=== PATIENT | male | born 1990 | race African-American/Black ===

== ENCOUNTER 2018-02-08 19:01 | Emergency (ER) | payer MEDICAID, OTHER ==
[~2018-02-08] VITALS: Ht 182.9 cm; Wt 80.0 kg
[2018-02-08] MEDS ORDERED: DICYCLOMINE 10 MG/5 ML ORAL SYR PO STA (19:47)
[2018-02-08] MEDS ORDERED: VISCOUS LIDOCAINE 2% 15 ML UDC PO STA (19:47)
[2018-02-08] MEDS ORDERED: FAMOTIDINE 20MG/2ML VIAL IV STA (19:47)
[2018-02-08] MEDS ORDERED: SODIUM CHLORIDE 0.9% 1,000 ML IV ONE (19:47)
[2018-02-08] MEDS ORDERED: MAGNESIUM/ALUMINUM HYDROXIDE/SIMETHICONE 30ML UDC PO STA (19:47)
[2018-02-08] MEDS ORDERED: ONDANSETRON HCL 4MG/2ML VIAL IV ONE (20:45)
[2018-02-08 21:00] LABS: CHLORIDE 103 mEq/L (98-107)
[2018-02-08 21:02] LABS: BASOPHILS % 0.1 % (0.0-2.0); HEMATOCRIT. 48.2 % (42.0-52.0); HEMOGLOBIN. 16.5 g/dL (14.0-18.0); MEAN CORPUSCULAR HEMOGLOBIN 27.6 pg (28.0-32.0); MEAN CORPUSCULAR VOLUME 80.5 fL (80.0-94.0); MEAN PLATELET VOLUME 9.7 fl (7.4-10.4); MONOCYTES % 6.6 % (2.0-8.0); NEUTROPHILS % 81.3 % (40.0-76.0); PLATELET 305 x1000/uL (130-400); RED BLOOD CELL COUNT 5.99 mill/uL (4.7-6.1); RED CELL DISTRIBUTION WIDTH 16.1 % (11.6-14.6)
[2018-02-08 21:04] LABS: ETHANOL BLOOD < 10 mg/dL
[2018-02-08 21:45] VITALS: BP 130/82
== END 2018-02-08 21:55 | disposition home or self-care (01) ==
LOC: ER 19:10
DX: R10.13 Epigastric pain (principal); R11.2 Nausea with vomiting, unspecified; I10 Essential (primary) hypertension
CPT/HCPCS: 36415; 71045; 80053; 83690; 85025; 96361; 96374; 96375; 99285; G0482; J2405; J3490; J7030

== ENCOUNTER 2018-04-10 11:38 | Emergency (ER) | payer OTHER ==
[~2018-04-10] VITALS: Ht 177.8 cm; Wt 103.0 kg
[2018-04-10] MEDS ORDERED: MAGNESIUM/ALUMINUM HYDROXIDE/SIMETHICONE 30ML UDC PO STA (13:24)
[2018-04-10] MEDS ORDERED: SODIUM CHLORIDE 0.9% 1,000 ML IV ONE (13:24)
[2018-04-10] MEDS ORDERED: FAMOTIDINE 20MG/2ML VIAL IV STA (13:24)
[2018-04-10] MEDS ORDERED: ONDANSETRON HCL 4MG/2ML INJ IV STA (13:24)
[2018-04-10] MEDS ORDERED: VISCOUS LIDOCAINE 2% 15 ML UDC PO STA (13:24)
[2018-04-10 15:17] LABS: BASOPHILS % 0.3 % (0.0-2.0); HEMATOCRIT. 51.4 % (42.0-52.0); HEMOGLOBIN. 18.1 g/dL (14.0-18.0); LYMPHOCYTES % 12.7 % (20.0-50.0); MEAN CORPUSCULAR HEMOGLOBIN 28.4 pg (28.0-32.0); MEAN CORPUSCULAR VOLUME 80.9 fL (80.0-94.0); MEAN PLATELET VOLUME 9.9 fl (7.4-10.4); MONOCYTES % 6.2 % (2.0-8.0); NEUTROPHILS % 80.8 % (40.0-76.0); PLATELET 278 x1000/uL (130-400); RED BLOOD CELL COUNT 6.35 mill/uL (4.7-6.1); RED CELL DISTRIBUTION WIDTH 15.5 % (11.6-14.6)
[2018-04-10 15:23] LABS: CHLORIDE 100 mEq/L (98-107)
[2018-04-10 15:25] LABS: INR 1.1
[2018-04-10 16:58] LABS: CLARITY URINE TURBID (CLEAR); COLOR URINE DARK YELLOW (YELLOW); KETONES URINE TRACE (NEGATIVE); LEUKOCYTE ESTERASE URINE TRACE (NEGATIVE); NITRITE URINE NEGATIVE (NEGATIVE); OCCULT BLOOD URINE NEGATIVE (NEGATIVE); PH URINE 5.5 (4.5-8.0); PROTEIN URINE 2+ (NEGATIVE); SPECIFIC GRAVITY URINE 1.044 (1.005-1.030)
[2018-04-10 17:46] LABS: *AMPHETAMINES SCREEN URINE NEGATIVE (NEGATIVE); *BARBITURATES SCREEN URINE NEGATIVE (NEGATIVE); *BENZODIAZEPINES SCREEN URINE NEGATIVE (NEGATIVE); *COCAINE SCREEN URINE PRESUMTIVE POSITIVE (NEGATIVE); METHADONE URINE SCREEN NEGATIVE (NEGATIVE); OPIATES URINE SCREEN NEGATIVE (NEGATIVE)
[2018-04-10 17:47] LABS: CANNABINOID URINE SCREEN PRESUMTIVE POSITIVE (NEGATIVE); PHENCYCLIDINE URINE SCREEN NEGATIVE (NEGATIVE)
[2018-04-10 20:27] VITALS: BP 165/88
== END 2018-04-10 20:30 | disposition home or self-care (01) ==
LOC: ER 12:55
DX: K29.00 Acute gastritis without bleeding (principal); N39.0 Urinary tract infection, site not specified; F12.10 Cannabis abuse, uncomplicated; F20.9 Schizophrenia, unspecified
CPT/HCPCS: 36415; 80053; 80305; 81003; 83690; 85025; 85610; 96374; 96375; 99284; J2405; J3490; J7030

== ENCOUNTER 2018-04-11 18:17 | Emergency (ER) | payer MEDICAID, OTHER ==
[~2018-04-11] VITALS: Ht 177.8 cm; Wt 91.0 kg
[2018-04-11] MEDS ORDERED: DICYCLOMINE 10 MG/5 ML ORAL SYR PO STA (21:28)
[2018-04-11] MEDS ORDERED: FAMOTIDINE 20MG/2ML VIAL IV STA (21:28)
[2018-04-11] MEDS ORDERED: ONDANSETRON HCL 4MG/2ML INJ IV STA (21:28)
[2018-04-11] MEDS ORDERED: VISCOUS LIDOCAINE 2% 15 ML UDC PO STA (21:28)
[2018-04-11] MEDS ORDERED: MAGNESIUM/ALUMINUM HYDROXIDE/SIMETHICONE 30ML UDC PO STA (21:28)
[2018-04-11 23:11] VITALS: BP 157/86
[2018-04-11] MEDS ORDERED: METOCLOPRAMIDE HCL 10MG TABLET PO ONE (23:30)
== END 2018-04-11 23:22 | disposition home or self-care (01) ==
LOC: ER 18:17
DX: K21.9 Gastro-esophageal reflux disease without esophagitis (principal)
CPT/HCPCS: 96374; 96375; 99284; J2405; J3490; Z7610; J8597

== ENCOUNTER 2018-10-07 16:57 | Emergency (ER) | payer MEDICAID ==
[~2018-10-07] VITALS: Ht 177.8 cm; Wt 77.0 kg
[2018-10-07 20:27] VITALS: BP 131/89
[2018-10-07] MEDS ORDERED: IBUPROFEN 600MG TABLET PO ONE (20:30)
== END 2018-10-07 20:49 | disposition home or self-care (01) ==
LOC: ER 16:57
DX: S90.821A Blister (nonthermal), right foot, initial encounter (principal); F20.9 Schizophrenia, unspecified; F12.10 Cannabis abuse, uncomplicated; X58.XXXA Exposure to other specified factors, initial encounter; Y93.89 Activity, other specified; Y92.89 Other specified places as the place of occurrence of the external cause; Y99.8 Other external cause status
CPT/HCPCS: 99283

== ENCOUNTER 2018-11-06 04:44 | Emergency (ER) | payer MEDICAID ==
[~2018-11-06] VITALS: Ht 172.7 cm; Wt 73.0 kg
[2018-11-06] MEDS ORDERED: MAGNESIUM/ALUMINUM HYDROXIDE/SIMETHICONE 30ML UDC PO STA ×2 (06:24→08:37)
[2018-11-06] MEDS ORDERED: ONDANSETRON HCL 4MG/2ML INJ IV STA (06:24)
[2018-11-06] MEDS ORDERED: KETOROLAC 30MG/ML VIAL IV STA (06:24)
[2018-11-06] MEDS ORDERED: SODIUM CHLORIDE 0.9% 1,000 ML IV ONE (06:24)
[2018-11-06] MEDS ORDERED: DICYCLOMINE 10 MG/5 ML ORAL SYR PO STA ×2 (06:24→08:37)
[2018-11-06] MEDS ORDERED: VISCOUS LIDOCAINE 2% 15 ML UDC PO STA ×2 (06:24→08:37)
[2018-11-06 07:04] LABS: BASOPHILS % 0.2 % (0.0-2.0); EOSINOPHILS % 0.1 % (0.0-5.0); HEMATOCRIT. 46.2 % (42.0-52.0); HEMOGLOBIN. 15.6 g/dL (14.0-18.0); LYMPHOCYTES % 11.3 % (20.0-50.0); MEAN CORPUSCULAR HEMOGLOBIN 27.9 pg (28.0-32.0); MEAN CORPUSCULAR VOLUME 82.5 fL (80.0-94.0); MONOCYTES % 2.9 % (2.0-8.0); NEUTROPHILS % 85.5 % (40.0-76.0); PLATELET 251 x1000/uL (130-400); RED CELL DISTRIBUTION WIDTH 15.8 % (11.6-14.6)
[2018-11-06 07:06] LABS: CHLORIDE 103 mEq/L (98-107)
[2018-11-06 07:07] LABS: PROTHROMBIN TIME 10.7 sec (9.6-11.0)
[2018-11-06 07:11] LABS: ETHANOL BLOOD < 10 mg/dL
[2018-11-06 08:13] LABS: CLARITY URINE CLOUDY (CLEAR); COLOR URINE YELLOW (YELLOW); KETONES URINE 2+ (NEGATIVE); LEUKOCYTE ESTERASE URINE NEGATIVE (NEGATIVE); NITRITE URINE NEGATIVE (NEGATIVE); OCCULT BLOOD URINE NEGATIVE (NEGATIVE); PH URINE >=9.0 (4.5-8.0); PROTEIN URINE NEGATIVE (NEGATIVE); SPECIFIC GRAVITY URINE 1.018 (1.005-1.030); UROBILINOGEN URINE 0.2 E.U./dL (0.2-1.0)
[2018-11-06] MEDS ORDERED: ONDANSETRON 4MG ODT PO STA (08:37)
[2018-11-06 09:04] VITALS: BP 152/81
== END 2018-11-06 09:02 | disposition home or self-care (01) ==
LOC: ER 04:44
DX: K29.20 Alcoholic gastritis without bleeding (principal); F10.10 Alcohol abuse, uncomplicated; Y90.0 Blood alcohol level of less than 20 mg/100 ml; F31.9 Bipolar disorder, unspecified; F20.9 Schizophrenia, unspecified; F12.10 Cannabis abuse, uncomplicated
CPT/HCPCS: 36415; 80053; 80320; 81003; 83690; 85025; 85610; 96361; 96374; 96375; 99284; J1885; J7030; Q0162; Z7610; J2405; G0480

== ENCOUNTER 2018-11-09 17:28 | Emergency (ER) | payer MEDICAID ==
[~2018-11-09] VITALS: Ht 175.3 cm; Wt 73.0 kg
[2018-11-09] MEDS ORDERED: SODIUM CHLORIDE 0.9% 1,000 ML IV ONE (17:36)
[2018-11-09] MEDS ORDERED: ONDANSETRON HCL 4MG/2ML INJ IV STA (17:36)
[2018-11-09] MEDS ORDERED: MAGNESIUM/ALUMINUM HYDROXIDE/SIMETHICONE 30ML UDC PO STA (17:36)
[2018-11-09] MEDS ORDERED: VISCOUS LIDOCAINE 2% 15 ML UDC MM STA (18:08)
[2018-11-09 18:40] LABS: BASOPHILS % 0.5 % (0.0-2.0); EOSINOPHILS % 4.3 % (0.0-5.0); HEMATOCRIT. 54.1 % (42.0-52.0); HEMOGLOBIN. 18.8 g/dL (14.0-18.0); LYMPHOCYTES % 21.8 % (20.0-50.0); MEAN CORPUSCULAR HEMOGLOBIN 28.6 pg (28.0-32.0); MEAN CORPUSCULAR VOLUME 82.1 fL (80.0-94.0); MEAN PLATELET VOLUME 9.1 fl (7.4-10.4); MONOCYTES % 7.1 % (2.0-8.0); NEUTROPHILS % 66.3 % (40.0-76.0); PLATELET 282 x1000/uL (130-400); RED CELL DISTRIBUTION WIDTH 16.2 % (11.6-14.6)
[2018-11-09 18:46] LABS: CHLORIDE 96 mEq/L (98-107)
[2018-11-09 18:48] LABS: PROTHROMBIN TIME 10.3 sec (9.6-11.0)
[2018-11-09 21:02] LABS: CLARITY URINE TURBID (CLEAR); COLOR URINE YELLOW (YELLOW); KETONES URINE TRACE (NEGATIVE); LEUKOCYTE ESTERASE URINE NEGATIVE (NEGATIVE); NITRITE URINE NEGATIVE (NEGATIVE); OCCULT BLOOD URINE NEGATIVE (NEGATIVE); PH URINE 7.5 (4.5-8.0); PROTEIN URINE NEGATIVE (NEGATIVE); SPECIFIC GRAVITY URINE 1.016 (1.005-1.030); UROBILINOGEN URINE 0.2 E.U./dL (0.2-1.0)
[2018-11-09] MEDS ORDERED: MAGNESIUM/ALUMINUM HYDROXIDE/SIMETHICONE 30ML UDC PO ONE (21:30)
[2018-11-09 23:29] VITALS: BP 165/90
== END 2018-11-09 23:37 | disposition home or self-care (01) ==
LOC: ER 17:28
DX: R10.13 Epigastric pain (principal); F31.9 Bipolar disorder, unspecified; F20.9 Schizophrenia, unspecified; F12.10 Cannabis abuse, uncomplicated; R11.0 Nausea
CPT/HCPCS: 36415; 76705; 80053; 81003; 83690; 85025; 85610; 86140; 96374; 99284; J2405; J7030; Z7610

== ENCOUNTER 2018-12-10 18:05 | Emergency (ER) | payer MEDICAID ==
[~2018-12-10] VITALS: Ht 172.7 cm; Wt 80.0 kg
[2018-12-10] MEDS ORDERED: ONDANSETRON HCL 4MG/2ML INJ IV STA (18:49)
[2018-12-10] MEDS ORDERED: SODIUM CHLORIDE 0.9% 1,000 ML IV ONE (18:49)
[2018-12-10] MEDS ORDERED: MAGNESIUM/ALUMINUM HYDROXIDE/SIMETHICONE 30ML UDC PO ONE (19:00)
[2018-12-10] MEDS ORDERED: VISCOUS LIDOCAINE 2% 15 ML UDC PO ONE (19:00)
[2018-12-10] MEDS ORDERED: DICYCLOMINE 10 MG/5 ML ORAL SYR PO ONE (19:00)
[2018-12-10 19:19] LABS: CHLORIDE 103 mEq/L (98-107)
[2018-12-10 19:21] LABS: PARTIAL THROMBOPLASTIN TIME 25.9 sec (23.4-31.0); PROTHROMBIN TIME 10.6 sec (9.6-11.0)
[2018-12-10 19:24] LABS: BASOPHILS % 0.3 % (0.0-2.0); EOSINOPHILS % 0.2 % (0.0-5.0); HEMATOCRIT. 48.4 % (42.0-52.0); HEMOGLOBIN. 16.9 g/dL (14.0-18.0); LYMPHOCYTES % 23.9 % (20.0-50.0); MEAN CORPUSCULAR HEMOGLOBIN 28.2 pg (28.0-32.0); MEAN CORPUSCULAR VOLUME 80.7 fL (80.0-94.0); MEAN PLATELET VOLUME 9.5 fl (7.4-10.4); NEUTROPHILS % 67.6 % (40.0-76.0); PLATELET 260 x1000/uL (130-400); RED CELL DISTRIBUTION WIDTH 16.2 % (11.6-14.6)
[2018-12-10 19:25] LABS: ETHANOL BLOOD < 10 mg/dL
[2018-12-11 02:22] VITALS: BP 149/82
== END 2018-12-11 02:25 | disposition home or self-care (01) ==
LOC: ER 18:05
DX: K29.00 Acute gastritis without bleeding (principal); R11.2 Nausea with vomiting, unspecified; E86.0 Dehydration; F12.10 Cannabis abuse, uncomplicated; F31.9 Bipolar disorder, unspecified; F20.9 Schizophrenia, unspecified
CPT/HCPCS: 36415; 71045; 76705; 80053; 80320; 83690; 84484; 85025; 85610; 85730; 99284; J7030; G0480

== ENCOUNTER 2018-12-11 10:55 | Emergency (ER) | payer MEDICAID ==
[~2018-12-11] VITALS: Ht 172.7 cm; Wt 81.0 kg
[2018-12-11 10:57] VITALS: BP 144/80
[2018-12-11] MEDS ORDERED: VISCOUS LIDOCAINE 2% 15 ML UDC PO STA (12:01)
[2018-12-11] MEDS ORDERED: SODIUM CHLORIDE 0.9% 500 ML IV ONE (12:01)
[2018-12-11] MEDS ORDERED: MAGNESIUM/ALUMINUM HYDROXIDE/SIMETHICONE 30ML UDC PO STA (12:01)
[2018-12-11 12:19] LABS: BASOPHILS % 0.4 % (0.0-2.0); EOSINOPHILS % 0.4 % (0.0-5.0); HEMATOCRIT. 51.5 % (42.0-52.0); LYMPHOCYTES % 27.1 % (20.0-50.0); MEAN CORPUSCULAR HEMOGLOBIN 28.3 pg (28.0-32.0); MEAN CORPUSCULAR VOLUME 80.9 fL (80.0-94.0); MEAN PLATELET VOLUME 9.3 fl (7.4-10.4); MONOCYTES % 5.6 % (2.0-8.0); NEUTROPHILS % 66.5 % (40.0-76.0); PLATELET 265 x1000/uL (130-400); RED BLOOD CELL COUNT 6.37 mill/uL (4.7-6.1); RED CELL DISTRIBUTION WIDTH 16.3 % (11.6-14.6)
[2018-12-11 12:24] LABS: CHLORIDE 101 mEq/L (98-107)
[2018-12-11] MEDS ORDERED: FAMOTIDINE 20MG TABLET PO ONE (12:45)
[2018-12-11] MEDS ORDERED: ONDANSETRON 4MG ODT PO ONE (12:45)
[2018-12-11] MEDS ORDERED: DICYCLOMINE HCL 10MG CAPSULE PO ONE (12:45)
== END 2018-12-11 14:15 | disposition home or self-care (01) ==
LOC: ER 10:55
DX: R10.13 Epigastric pain (principal); R11.2 Nausea with vomiting, unspecified; F12.10 Cannabis abuse, uncomplicated; F31.9 Bipolar disorder, unspecified; F20.9 Schizophrenia, unspecified
CPT/HCPCS: 36415; 80053; 83690; 85025; 96360; 99284; J7030; Q0162

== ENCOUNTER 2018-12-28 02:18 | Emergency (ER) | payer MEDICAID ==
[~2018-12-28] VITALS: Ht 170.2 cm; Wt 68.5 kg
[2018-12-28] MEDS ORDERED: MAGNESIUM/ALUMINUM HYDROXIDE/SIMETHICONE 30ML UDC PO ONE (03:30)
[2018-12-28] MEDS ORDERED: VISCOUS LIDOCAINE 2% 15 ML UDC MM STA (03:30)
[2018-12-28 04:30] VITALS: BP 161/102
== END 2018-12-28 04:40 | disposition home or self-care (01) ==
LOC: ER 02:18
DX: F12.10 Cannabis abuse, uncomplicated (principal); R11.2 Nausea with vomiting, unspecified; F17.210 Nicotine dependence, cigarettes, uncomplicated; Z87.19 Personal history of other diseases of the digestive system
CPT/HCPCS: 99283; 99406

== ENCOUNTER 2018-12-28 05:16 | Emergency (ER) | payer MEDICAID ==
[~2018-12-28] VITALS: Ht 170.2 cm; Wt 68.0 kg
[2018-12-28 05:50] VITALS: BP 135/87
== END 2018-12-28 06:50 | disposition home or self-care (01) ==
LOC: ER 05:16
DX: F12.10 Cannabis abuse, uncomplicated (principal); R10.30 Lower abdominal pain, unspecified; R39.11 Hesitancy of micturition; Z98.890 Other specified postprocedural states
CPT/HCPCS: 99281

== ENCOUNTER 2018-12-30 21:40 | Emergency (ER) | payer MEDICAID ==
[~2018-12-30] VITALS: Ht 182.9 cm; Wt 80.0 kg
[2018-12-30] MEDS ORDERED: SODIUM CHLORIDE 0.9% 1,000 ML IV ONE (22:15)
[2018-12-30] MEDS ORDERED: KETOROLAC 30MG/ML VIAL IV STA (22:15)
[2018-12-30 22:52] LABS: BASOPHILS % 0.5 % (0.0-2.0); EOSINOPHILS % 1.2 % (0.0-5.0); HEMATOCRIT. 42.7 % (42.0-52.0); HEMOGLOBIN. 14.8 g/dL (14.0-18.0); LYMPHOCYTES % 39.9 % (20.0-50.0); MEAN CORPUSCULAR HEMOGLOBIN 28.5 pg (28.0-32.0); MEAN PLATELET VOLUME 9.3 fl (7.4-10.4); NEUTROPHILS % 52.4 % (40.0-76.0); PLATELET 254 x1000/uL (130-400)
[2018-12-30 22:54] LABS: CLARITY URINE CLEAR (CLEAR); COLOR URINE YELLOW (YELLOW); KETONES URINE NEGATIVE (NEGATIVE); LEUKOCYTE ESTERASE URINE NEGATIVE (NEGATIVE); NITRITE URINE NEGATIVE (NEGATIVE); OCCULT BLOOD URINE NEGATIVE (NEGATIVE); PH URINE 6.5 (4.5-8.0); PROTEIN URINE NEGATIVE (NEGATIVE); SPECIFIC GRAVITY URINE 1.001 (1.005-1.030); UROBILINOGEN URINE 0.2 E.U./dL (0.2-1.0)
[2018-12-30 22:57] LABS: CHLORIDE 104 mEq/L (98-107)
[2018-12-31 01:22] VITALS: BP 112/76
== END 2018-12-31 01:35 | disposition home or self-care (01) ==
LOC: ER 21:40
DX: R10.9 Unspecified abdominal pain (principal); R11.2 Nausea with vomiting, unspecified; F17.200 Nicotine dependence, unspecified, uncomplicated; F20.9 Schizophrenia, unspecified; F12.10 Cannabis abuse, uncomplicated
CPT/HCPCS: 36415; 74176; 80053; 81003; 83690; 85025; 96361; 96374; 99284; J1885; J7030; Z7610